=== PATIENT | male | born 1955 | race Caucasian/White ===

== ENCOUNTER 2016-12-07 05:11 | Inpatient (IN) ==
--- NOTE | 2016-11-30 08:31 | EKG Report ---
Test Performed on : 11/30/2016 08:23:04 AM Test Reason : MD ORDER Blood Pressure : / mmHG Vent. Rate : 078 BPM Atrial Rate : 078 BPM P-R Int : 160 ms QRS Dur : 090 ms QT Int : 376 ms P-R-T Axes : 042 009 017 degrees QTc Int : 428 ms Normal sinus rhythm. Inferior infarct , age undetermined Abnormal ECG No previous ECGs available Confirmed by Anthony Nice DO ([id number]) on 12/02/2016 1:11:48 PM
[2016-11-30 08:36] LABS: MANUAL DIFF NEEDED? NO; URINE MICRO REVIEW NEEDED? NO; URINE SOURCE CLEAN CATCH
[2016-11-30 08:49] LABS: BASO% 0.2 % (0.0-0.8); EOS# 0.16 X1000 (0.0-0.7); EOS% 2.7 % (0.0-10.0); HEMATOCRIT 45.9 % (42.0-52.0); HEMOGLOBIN 15.7 g/dL (14.0-18.0); IMM GRAN# 0.02 X1000 (0.0-0.04); IMM GRAN% 0.3 % (0.0-0.5); LYMPH# 2.19 X1000 (1.2-3.4); LYMPH% 37.4 % (20.5-51.1); MCH 30.4 PG (27-31); MCHC 34.2 g/dL (33-37); MONO% 10.2 % (1.7-9.3); MPV 11.1 FL (7.4-10.4); NEUT% 49.2 % (42.2-75.2); PLT 209 X1000 (130-400); RBC 5.16 XMIL (4.7-6.1)
[2016-11-30 08:51] LABS: BILIRUBIN URINE NEGATIVE (NEGATIVE); BLOOD URINE NEGATIVE (NEGATIVE); COLOR YELLOW; GLUCOSE URINE NEGATIVE (NEGATIVE); LEUKOCYTES URINE NEGATIVE (NEGATIVE); NITRITE URINE NEGATIVE (NEGATIVE); PH URINE 6.5; PROTEIN URINE TRACE mg/dL (NEGATIVE); SP GRAVITY URINE 1.019; TURBIDITY URINE CLEAR (CLEAR); UROBILINOGEN URINE NORMAL (NORMAL)
[2016-11-30 08:52] LABS: UR EPITHELIAL CELLS <10 /HPF (<10); URINE BACTERIA NEGATIVE /HPF; URINE RBC <10 /HPF (<10); URINE WBC <10 /HPF (<10)
[2016-11-30 08:57] LABS: INR 1.04; PROTIME 10.9 Seconds (9.2-11.7); PTT 27.4 Seconds (22.0-36.0)
[2016-11-30 09:01] LABS: AGAP 12; BUN 22 mg/dL (8-22); CALCIUM 9.2 mg/dL (8.8-10.2); CHLORIDE 101 mmol/L (98-107); COSMO 287; POTASSIUM 4.6 mmol/L (3.5-5.1); SODIUM 140 mmol/L (136-145); TCO2 27 mmol/L (25-35)
[2016-12-07] MEDS ORDERED: REGLAN ONE (05:36)
[2016-12-07] MEDS ORDERED: COLACE ONE (05:36)
[2016-12-07] MEDS ORDERED: CELEBREX ONE (05:36)
[2016-12-07] MEDS ORDERED: LYRICA ONE ×2 (05:36→06:04)
[2016-12-07] MEDS ORDERED: PEPCID ONE (05:36)
[2016-12-07] MEDS ORDERED: KEFZOL 2 GM/D5W 2 GM/50 ML IVPB ONE (05:37)
[2016-12-07] MEDS ORDERED: LR 1,000 ML ONE (05:37)
[2016-12-07] MEDS ORDERED: TORADOL ONE (06:33)
[2016-12-07] MEDS ORDERED: DURAMORPH ONE (06:33)
[2016-12-07] MEDS ORDERED: SODIUM CHLORIDE 0.9% ONE (06:34)
[2016-12-07] MEDS ORDERED: CYKLOKAPRON 1,000 MG/NS 2,000 MG/200 ML IVPB ONE (06:34)
[2016-12-07] MEDS ORDERED: SENSORCAINE 0.25%/EPI 1:200,000 ONE (06:34)
[2016-12-07] MEDS ORDERED: EXPAREL 1.3% ONE (06:35)
[2016-12-07] MEDS ORDERED: NEOSPORIN G.U. IRRIGANT ONE (06:35)
[2016-12-07] MEDS ORDERED: VANCOMYCIN ONE (06:40)
[2016-12-07] MEDS ORDERED: VERSED ONE (07:04)
[2016-12-07] MEDS ORDERED: FENTANYL ONE (07:05)
[2016-12-07] MEDS ORDERED: DIPRIVAN 1% 500 MG/50 ML BOTTLE ONE (07:10)
[2016-12-07] MEDS ORDERED: DIPRIVAN 1% ONE ×2 (08:02→08:51)
[2016-12-07] MEDS ORDERED: DECADRON ONE (08:19)
[2016-12-07] MEDS ORDERED: OFIRMEV 1000 MG/ISOTONIC SOLN 1,000 MG/100 ML BOTTLE ONE (08:19)
[2016-12-07 09:46] LABS: URINE MICRO REVIEW NEEDED? NO; URINE SOURCE CATH
[2016-12-07 09:51] LABS: BILIRUBIN URINE NEGATIVE (NEGATIVE); BLOOD URINE NEGATIVE (NEGATIVE); COLOR YELLOW; GLUCOSE URINE NEGATIVE (NEGATIVE); LEUKOCYTES URINE NEGATIVE (NEGATIVE); NITRITE URINE NEGATIVE (NEGATIVE); PROTEIN URINE NEGATIVE (NEGATIVE); TURBIDITY URINE CLEAR (CLEAR); UROBILINOGEN URINE NORMAL (NORMAL)
[2016-12-07 09:52] LABS: UR EPITHELIAL CELLS <10 /HPF (<10); URINE BACTERIA NEGATIVE /HPF; URINE RBC <10 /HPF (<10); URINE WBC <10 /HPF (<10)
[2016-12-07] MEDS ORDERED: OXY IR PO PRN (10:02)
[2016-12-07] MEDS ORDERED: MORPHINE IV PRN (10:02)
[2016-12-07] MEDS ORDERED: MILK OF MAGNESIA PO PRN (10:03)
[2016-12-07] MEDS ORDERED: ZOFRAN PO PRN (10:03)
[2016-12-07] MEDS ORDERED: NS 1,000 ML ONE (10:11)
--- NOTE | 2016-12-07 11:07 | OPERATIVE NOTE ---
PROCEDURE DATE: 12/07/2016 PREOPERATIVE DIAGNOSIS: Degenerative osteoarthritis arthritis right knee. POSTOPERATIVE DIAGNOSIS: Degenerative osteoarthritis arthritis right knee. PROCEDURE: Right total knee arthroplasty with DePuy Attune size 7 posterior stabilized femur, a size 8 tibial tray, a 5 mm rotating platform tibial insert, and a 38 mm medialized anatomic patella. SURGEON: Nicanor France MD. QUARTER INSPECTOR: ANAMARIA Olguin. SECOND QUARTER INSPECTOR: Jamin Moreno RN. ANESTHESIA: Spinal. IV FLUIDS: Was 1900 mL lactated Ringer's. ESTIMATED BLOOD LOSS: 50 mL. TOURNIQUET TIME: Was 110 minutes at 350 mmHg. DRAINS: One Hemovac drain was placed and was not sewn. COMPLICATIONS: None. INDICATION: The patient is a pleasant, 61-year-old male with a chronic history of pain and discomfort of his right knee. He continues to have pain and discomfort despite appropriate nonoperative treatment. X-rays revealed significant degenerative osteoarthritis. Recommendation to proceed with right total knee arthroplasty was offered. Risks and benefits of surgery were explained, including the risks of anesthesia, , bleeding, infection, failure to relieve pain, postop stiffness, nerve injury, blood clots, and other imponderables. All questions answered. Patient and family wished to proceed with surgery. DETAILS OF THE OPERATION: The patient was taken to the operating room and placed supine on the operating table. Once adequate anesthesia was obtained, patient's right lower extremity was subsequently prepped and draped in usual sterile fashion. An Esmarch was used to exsanguinate the right lower extremity and the tourniquet was inflated to 350 mmHg. A standard anterior incision was made with a skin knife. Medial and lateral skin envelopes were developed. A standard medial parapatellar arthrotomy was then performed. Patella fat pad was excised. Retractors were then placed. Approximately 1 cm anterior to the PCL insertion, starting reamer was passed. Intramedullary guide was then placed with a distal femoral cutting block pinned in position. Distal femoral cut was then performed in standard fashion. A sizing block was placed, measuring size 7. Corresponding pins were placed. A size 7 cutting block was then placed. Anterior, posterior, and chamfer cuts were then made. After this had been performed, attention then turned to the proximal tibia where further resection of the ACL and PCL was performed. An extramedullary guide was then used to pin the proximal tibial cutting block. It had good alignment, confirmed with the alignment vaibhav. The proximal tibia was then resected in standard fashion. Medial and lateral menisci were excised. A curved osteotome was used to remove the posterior osteophytes. A spacer block was placed and had good soft tissue balance in both flexion and extension. Attention then turned to the proximal tibia, where a size 8 tibial tray appeared to be the correct size. Corresponding pins were placed. This was followed by central reamer and a fin punch. A box cutting guide was then placed on the distal femur. A box cut was performed. A trial femoral component was then placed and 2 lug holes were drilled. A trial tibial insert was then placed. After this had been performed, attention was then turned to the patella which was everted and resected in standard fashion. A 38 appeared to be the correct size. Corresponding holes were drilled. A 38 trial patella component was then placed and had good patellofemoral tracking. The trial components were then removed. Copious irrigation was then performed once again with antibiotic pulsatile lavage while vancomycin was mixed with cement on the back table. Sequential cementing was then performed, first with the tibial tray and excess cement with a [place], followed by the femoral component and excess cement with a [place]. A trial tibial insert in axial loading and full extension was maintained while the cement cured. Exparel was then placed in deep soft tissue, as well subcutaneous tissue while the cement was curing. After cement had cured, peripheral cement was removed with a small osteotome. The 5 mm appeared to be the correct size for the tibial insert. This was removed. While removing the trial insert, Exparel was placed in the deep posterior capsule. Copious irrigation was then performed once again with antibiotic pulsatile lavage. A 5 mm rotating platform tibial insert was then placed and had good soft tissue balance, good patellofemoral tracking. A 1/8 Hemovac drain was placed but was not sewn in. Copious irrigation was then performed once again with antibiotic pulsatile lavage appeared. Then #1 Vicryl was used to repair the arthrotomy, followed by 2-0 Vicryl to repair the subcutaneous tissue and skin blanca. Adaptic, sterile 4 x 4, Webril, cryounit was applied to the right lower extremity. Patient tolerated the procedure well. No complications. Transferred to the recovery room in stable condition. cc: Nicanor France MD
--- NOTE | 2016-12-07 12:48 | Diag Imaging Result Doc PS360 ---
KNEE 1-2 VIEWS-RIGHT - 12/07/2016 INDICATION: post op TKA TECHNIQUE: Two views COMPARISON: None FINDINGS: There has been right total knee arthroplasty. Alignment is anatomic. No hardware fracture or loosening. IMPRESSION: No complication. Electronically signed by Malcolm Lombardo 12/07/2016 12:46 PM
[2016-12-07] MEDS: NS 1,000 ML IV SCH ×2 (12:50)
[2016-12-07] MEDS: KEFZOL 2 GM/D5W 2 GM/50 ML IVPB IV SCH ×2 (15:35→22:25)
[2016-12-07] MEDS: TYLENOL PO SCH ×2 (15:35→19:49)
[2016-12-07] MEDS: PERIDEX MT SCH (19:49)
[2016-12-07] MEDS: COLACE PO SCH (19:50)
[2016-12-08] MEDS: NS 1,000 ML IV SCH
[2016-12-08] MEDS: TYLENOL PO SCH ×3 (00:02→10:45)
[2016-12-08] MEDS: PERIDEX MT SCH ×2 (00:02→10:46)
[2016-12-08] MEDS: COLACE PO SCH ×2 (00:02→10:45)
[2016-12-08 03:41] VITALS: BP 138/68
[2016-12-08 05:54] LABS: HEMATOCRIT 38.7 % (42.0-52.0); HEMOGLOBIN 13.4 g/dL (14.0-18.0)
[2016-12-08] MEDS ORDERED: XARELTO PO SCH (06:00)
[2016-12-08 06:04] LABS: AGAP 13; BUN 18 mg/dL (8-22); CALCIUM 8.7 mg/dL (8.8-10.2); CHLORIDE 102 mmol/L (98-107); COSMO 296; POTASSIUM 4.6 mmol/L (3.5-5.1); SODIUM 140 mmol/L (136-145); TCO2 25 mmol/L (25-35)
--- NOTE | 2016-12-08 07:21 | PROGRESS NOTE ---
DATE: 12/08/2016 SUBJECTIVE: The patient is a pleasant, 61-year-old male, who is 1 day status post right total knee arthroplasty. The patient is currently resting comfortably and has no complaints. He was ambulated with Physical Therapy yesterday afternoon. OBJECTIVE: The patient's right lower extremity dressing is intact. His calf is soft. He has active dorsiflexion and plantar flexion. LABORATORY DATA: His hemoglobin is 13.4, hematocrit is 38.7. His glucose is 369. IMPRESSION: 1. Postoperative day #1 status post right total knee arthroplasty. 2. Hyperglycemia. PLAN: At this point, will change his dressing, discontinue his drain, Hep-Lock his IV. Will obtain Dr. Jovel's opinion with regards to his hyperglycemia, and will tentatively plan on discharging home today after physical therapy. The patient will follow up in the office on 12/20/2016. Will also plan on proceeding with outpatient physical therapy. cc: Nicanor France MD MTDD
[2016-12-08] MEDS ORDERED: HUMULIN R SUBQ ONE (07:23)
[2016-12-08] MEDS ORDERED: PEPCID PO SCH (09:00)
== END 2016-12-08 12:52 | disposition home or self-care (01) ==
LOC: SURHOLD 05:11 → 4N 08:28
PROVIDERS: ADMIT Orthopaedic Surgery Adult Reconstructive Orthopaedic Surgery; ATTEND Orthopaedic Surgery Adult Reconstructive Orthopaedic Surgery